=== PATIENT | male | born 1960 | race African-American/Black ===

== ENCOUNTER 2021-12-29 10:26 | Inpatient (IN) | payer OTHER ==
[2021-12-29 11:34] VITALS: BMI 19.1
[2021-12-29] MEDS ORDERED: BISMUTH SUBSALICYLATE 262 MG/15 ML BTL PO PRN (12:29)
[2021-12-29] MEDS ORDERED: MAG HYDROX/AL HYDROX/SIMETH 30 ML UNIT-DOSE CUP PO PRN (12:29)
[2021-12-29] MEDS ORDERED: BENZOCAINE/MENTHOL (CHLORASEPTIC ) LOZENGE MM PRN (12:29)
[2021-12-29] MEDS ORDERED: IBUPROFEN 600 MG TABLET (FP) PO PRN (12:29)
[2021-12-29] MEDS ORDERED: ACETAMINOPHEN 325 MG TABLET (FP) PO PRN ×2 (12:29)
[2021-12-29] MEDS ORDERED: METHOCARBAMOL 500 MG TABLET PO PRN (12:29)
[2021-12-29] MEDS ORDERED: MAGNESIUM HYDROX 2400MG/30ML ORAL SUSPENSION 30 ML CUP PO PRN (12:29)
[2021-12-29] MEDS ORDERED: chlordiazePOXIDE HCL 25 MG CAPSULE PO PRN (12:29)
[2021-12-29] MEDS ORDERED: IBUPROFEN 400 MG TABLET (FP) PO PRN (12:29)
[2021-12-29] MEDS ORDERED: MAGNESIUM CITRATE 300 ML BOTTLE PO PRN (12:29)
[2021-12-29] MEDS ORDERED: ONDANSETRON *ODT* 4 MG TABLET SL PRN (12:29)
[2021-12-29] MEDS ORDERED: DICYCLOMINE HCL 10 MG CAPSULE PO PRN (12:29)
[2021-12-29] MEDS ORDERED: LOPERAMIDE HCL 2 MG CAPSULE PO PRN (12:29)
[2021-12-29] MEDS: HYDROCHLOROTHIAZIDE 25 MG TABLET (FP) PO SCH (13:47)
[2021-12-29] MEDS: hydrOXYzine PAMOATE 25 MG CAPSULE (FP) PO SCH ×3 (13:48→22:37)
[2021-12-29] MEDS ORDERED: chlordiazePOXIDE HCL 25 MG CAPSULE PO SCH (17:00)
[2021-12-29] MEDS ORDERED: MELATONIN 5 MG TABLETS PO SCH (22:00)
[2021-12-29] MEDS ORDERED: THIAMINE HCL 100 MG TABLET (FP) PO SCH (22:00)
[2021-12-30] MEDS: hydrOXYzine PAMOATE 25 MG CAPSULE (FP) PO SCH ×2 (06:13→10:31)
[2021-12-30 09:54] VITALS: TEMP 96.9
[2021-12-30] MEDS ORDERED: NICOTINE 14 MG/24 HOURS TOPICAL PATCH TD SCH (10:00)
[2021-12-30] MEDS ORDERED: PRENATAL VITAMINS W/ FOLIC ACID TABLET (FP) PO SCH (10:00)
[2021-12-30] MEDS: HYDROCHLOROTHIAZIDE 25 MG TABLET (FP) PO SCH (10:31)
[2021-12-30 11:40] LABS: HEMATOCRIT 40.3 % (35.4-49); HEMOGLOBIN 13.2 GM/dL (11.7-16.9); MCH 30.9 pg (25.7-33.7); MCHC 32.9 g/dl (32.0-35.9); MEAN CELL VOLUME 93.9 fl (80-96); MEAN PLT VOLUME 9.8 fl (7.5-11.1); PLATELET COUNT 213 10^3/uL (134-434); RBC 4.29 M/mm3 (4.00-5.60); RDW 14.4 % (11.9-15.9); WHITE BLOOD COUNT 4.4 K/mm3 (4.0-10.0)
[2021-12-30 12:37] LABS: BLOOD UREA NITROGEN 25.9 mg/dL (7-18)
[2021-12-30 12:38] LABS: BILIRUBIN,TOTAL 0.6 mg/dL (0.2-1); TOT PROT 6.5 g/dl (6.4-8.2)
[2021-12-30 12:39] LABS: ALBUMIN 3.2 g/dl (3.4-5.0)
[2021-12-30 12:48] LABS: CALCIUM 8.9 mg/dL (8.5-10.1)
[2021-12-30 13:17] VITALS: BP 155/103; PULSE 70
[2021-12-30] MEDS ORDERED: amLODIPine BESYLATE 5 MG TABLET (FP) PO SCH (13:30)
[2021-12-31] MEDS ORDERED: chlordiazePOXIDE HCL 25 MG CAPSULE PO SCH (05:00)
[2022-01-01] MEDS ORDERED: chlordiazePOXIDE HCL 10 MG CAPSULE PO PRN
[2022-01-01] MEDS ORDERED: chlordiazePOXIDE HCL 10 MG CAPSULE PO SCH (05:00)
[2022-01-02] MEDS ORDERED: chlordiazePOXIDE HCL 10 MG CAPSULE PO SCH (05:00)
[2022-01-03] MEDS ORDERED: chlordiazePOXIDE HCL 10 MG CAPSULE PO ONE (05:00)
== END 2021-12-30 12:56 | disposition home or self-care (01) | DRG 897 ==
LOC: YASAS 10:26 → Y6N 13:02
PROVIDERS: ADMIT Allergy & Immunology; ATTEND Surgery
PROC: HZ2ZZZZ Detoxification Services for Substance Abuse Treatment (ICD-10-PCS; principal; 2021-12-29)
DX: F10.230 Alcohol dependence with withdrawal, uncomplicated (principal); F14.10 Cocaine abuse, uncomplicated; F12.20 Cannabis dependence, uncomplicated; F17.210 Nicotine dependence, cigarettes, uncomplicated; I10 Essential (primary) hypertension
CPT/HCPCS: 36415; 80053; 85027; 86780; 93005; 93010; C9803-CS; U0003; U0005